=== PATIENT | female | born 1955 | race Caucasian/White ===

== ENCOUNTER 2017-06-08 11:33 | Inpatient (IN) | payer BC ==
[~2017-06-08] VITALS: Ht 152.4 cm; Wt 76.2 kg
[~2017-06-08 11:33] MED LIST: DIOVAN HCT 1601 EAC1 PO; FOLIC ACID1 MG PO; HUMALOG100 UNIT/1 SC; HUMALOG100 UNIT/1 SQ; LANTUS100 UNITS/ SC; LEVAQUIN500 MG PO; METFORMIN HCL500 MG PO; METHOTREXATE2.5 MG SC; PRAVASTATIN SOD40 MG PO; VITAMIN D35000 UNIT PO; XELJANZ PO
--- OUTSIDE RECORDS SUMMARY | 2017-06-08 11:36 | XMS REPORT | Summary of Care ---
Author Author Joselyn Wesley Organization Unknown Address [facility] Phone Unavailable Care Team Providers Care Landscape Horticulture Instructor Name Role Phone CB Burgos, TOBY Unavailable Unavailable MOISE John, MAUREEN Unavailable Unavailable Joselyn Wesley Unavailable Unavailable ALYSSIA MARINO [place], DAVID Melgar Unavailable Unavailable ALYSSIA John, DAVID Unavailable Unavailable [facility], CHANDU Gusman Unavailable Unavailable Unavailable Unavailable Functional Status Name Dates Details Functional status health issues are not documented Status: Name Dates Details Cognitive status health issues are not documented Status: Problems Name Dates Details Right otitis externa (380.10, H60.91) Status: Active Allergic rhinitis (477.9, J30.9) Status: Active Acute internal derangement of right knee (717.9, M23.91) Status: Active Right knee pain (719.46, M25.561) Status: Active Acute UTI (599.0, N39.0) Status: Active Acute bronchitis (466.0, J20.9) Status: Active Acute upper respiratory infection (465.9, J06.9) Status: Active Hematuria (599.70, R31.9) Status: Active Encounter for biometric screening (V72.85, Z01.89) Status: Active Diabetes mellitus without complication (250.00, E11.9) Status: Active Noncompliance with treatment (V15.81, Z91.19) Status: Active Anemia (285.9, D64.9) Status: Active Screen for colon cancer (V76.51, Z12.11) Status: Active Nausea without vomiting (787.02, R11.0) Status: Active Chronic GERD (530.81, K21.9) Status: Active Asymptomatic gallstones (574.20, K80.20) Status: Active Acute ethmoidal sinusitis, recurrence not specified (461.2, J01.20) Status: Active Dizziness (780.4, R42) Status: Active Adrenal tumor (239.7, D49.7) Status: Active AB (asthmatic bronchitis), mild persistent, uncomplicated (493.90, J45.30) Status: Active Vertigo (780.4, R42) Status: Active GERD (gastroesophageal reflux disease) (530.81, K21.9) Status: Active Limb pain (729.5, M79.609) Status: Active Diabetes mellitus (250.00, E11.9) Status: Active Essential (primary) hypertension (401.9, I10) Status: Active Hyperlipidemia (272.4, E78.5) Status: Active Hypothyroidism (244.9, E03.9) Status: Active Vitamin D deficiency (268.9, E55.9) Status: Active Flu vaccine need (V04.81, Z23) Status: Active Lumbar disc disease with radiculopathy (722.10, M51.16) Status: Active Neuropathy, peripheral (356.9, G62.9) Status: Active Urinary tract infection (599.0, N39.0) Status: Active Abnormal urine odor (791.9, R82.90) Status: Active Dysuria (788.1, R30.0) Status: Active Rheumatoid arthritis (714.0, M06.9) Status: Active Breast screening (V76.10, Z12.31) Status: Active Lumbar canal stenosis (724.02, M48.061) Status: Active Lumbar degenerative disc disease (722.52, M51.36) Status: Active Symptoms of upper respiratory infection (URI) (786.09, R09.89) Status: Active Medications Name Dates Details Mame Freeman 33G Check BG 4x a day Quantity: 400 MOISE MAUREEN John * Start : 11-Aug-2012 Active Lantus SoloStar 100 UNIT/ML Subcutaneous Solution Pen-injector INJECT 40 TO 50 UNITS UNDER THE SKIN AT NIGHT. MAY SELF TITRATE UP TO 65 UNITS DAILY. * Quantity: 3 Refills: 0 MAUREEN PHIPPS M.D. * Start : 21-Nov-2016 Active 5 x 3 ML Pen BD Pen Needle Short U/F 31G X 8 MM 5 a day * Quantity: 500 Refills: 4 MOISE M.MAUREEN Santiago * Start : 11-Aug-2012 Active MetFORMIN HCl - 1000 MG Oral Tablet TAKE 1 TABLET TWICE A DAY WITH FOOD * Quantity: 180 Refills: 0 MAUREEN PHIPPS M.D. * Start : 03-Feb-2017 Active Levothyroxine Sodium 112 MCG Oral Tablet TAKE 1 TABLET DAILY DIRECTED. * Quantity: 90 Refills: 1 MAUREEN PHIPPS M.D. * Start : 11-Aug-2012 Active Folic Acid 1 MG Oral Tablet TAKE 1 TABLET DAILY * Refills: 0 MAUREEN PHIPPS M.D. * Start : 11-Aug-2012 Active Pravastatin Sodium 40 MG Oral Tablet take 1 tablet at night * Quantity: 90 Refills: 0 MAUREEN PHIPPS M.D. * Start : 11-May-2017 Active Valsartan-Hydrochlorothiazide 160-25 MG Oral Tablet TAKE 1 TABLET DAILY * Quantity: 90 Refills: 0 MAUREEN PHIPPS M.D. * Start : 11-May-2017 Active GlucaGen HypoKit 1 MG Injection Solution Reconstituted USE DIRECTED in case of severe hypoglycemia * Refills: 6 MAUREEN PHIPPS M.D. * Start : 22-Oct-2012 Active Tylenol TABS TAKE 1 TO 2 TABLETS EVERY 6 HOURS NEEDED. * Refills: 0 Active HumaLOG KwikPen 100 UNIT/ML Subcutaneous Solution Pen-injector 14-18 breakfast; 14-18 lunch; 14-18 supper; 8 snacks; CF~20; ICR 1:3 up to 180 units a day * Quantity: 25 Refills: 1 MAUREEN PHIPPS M.D. * Start : 11-May-2013 Active 3 ML Pen Vitamin D3 5000 UNIT Oral Capsule take 5000 IU daily Start 04-18-16 * Quantity: 100 Refills: 6 MAUREEN PHIPPS M.D. * Start : 17-Feb-2014 Active OneTouch Verio In Vitro Strip Check BG 4x a day * Quantity: 4 Refills: 3 MAUREEN PHIPPS M.D. * Start : 17-Apr-2016 Active 100 Strip Box Trulicity 1.5 MG/0.5ML Subcutaneous Solution Pen-injector Inject contents of 1 pen weekly * Quantity: 1 Refills: 0 MAUREEN PHIPPS M.D. * Start : 11-May-2017 Active 4 x 0.5 ML Pen Gabapentin 100 MG Oral Capsule TAKE 1 CAPSULE Every twelve hours * Quantity: 60 Refills: 1 TOBY VIVAR N.P. * Start : 19-Mar-2017 Active B-12 2500 MCG Sublingual Tablet Sublingual PLACE 1 TABLET DAILY * Refills: 0 Active Cefdinir 300 MG Oral Capsule TAKE 1 CAPSULE EVERY 12 HOURS DAILY. * Quantity: 14 Refills: 0 CB Jiménez.P., TOBY * Start : 28-May-2017 Active Promethazine-DM 6.25-15 MG/5ML Oral Syrup TAKE ONE (1) TEASPOONFUL(S) BY MOUTH EVERY SIX HOURS NEEDED FOR COUGH. * Quantity: 120 Refills: 0 CB N.P.TOBY * Start : 28-May-2017 Active Allergies and Adverse Reactions Name Dates Details Seconal CAPS (Allergy) Status: Active Past Medical History Name Dates Details History of Coronary Artery Disease (V12.59) Status: Resolved History of renal calculi (V13.01, Z87.442) Status: Resolved Procedures Procedure Dates Details MA Digital Mammo Screening Sukumar [id number] Date: 15-May-2017 History of Knee Surgery Completed History of Hysterectomy Completed History of Biopsy Breast Open Completed History of Renal Lithotripsy Completed Immunization Name Dates Details Fluzone Quadrivalent 0.5 ML Intramuscular Suspension Lot #: [id number] on: 03-Mar-2017 Family History Name Dates Details Family history of Diabetes Mellitus (V18.0) Comments: Family History Status: Active Name Dates Details No pertinent family history Status: Active Social History Name Dates Details - Status: Name Dates Details Never smoker Vital Signs Date Test Result Details 44-Qxm-[id number]:21 BP Systolic 122 mm[Hg] Status: Comments: Location: LUE; Position: Sitting BP Diastolic 69 mm[Hg] Status: Comments: Location: LUE; Position: Sitting Height 63 in Status: Weight 175.1875 lb Status: Body Mass Index Calculated 31.03 kg/m2 Status: Body Surface Area Calculated 1.83 m2 Status: Temperature 97.8 f Status: Comments: Method: Temporal Heart Rate 78 /min Status: Comments: Location: R Radial; Quality: Normal Respiration Rate 18 /min Status: 59-Oxg-06966:59 BP Systolic 133 mm[Hg] Status: Comments: Location: LUE; Position: Sitting BP Diastolic 80 mm[Hg] Status: Comments: Location: LUE; Position: Sitting Height 63 in Status: Weight 179.375 lb Status: Body Mass Index Calculated 31.77 kg/m2 Status: Body Surface Area Calculated 1.85 m2 Status: Temperature 97.7 f Status: Comments: Method: Temporal Heart Rate 87 /min Status: Comments: Location: L Brachial Artery; Respiration Rate 16 /min Status: Results Date Description Value Details [id number] MRI Spine lumbar wo contrast 99514 Spine lumbar wo contrast MRI SEE NOTES Comments: Spine lumbar wo contrast MRI , 05/15/2017 5:24 PM 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 L4-L5 grade 1 anteriorlisthesis of 3 mm, without evidence of pars defect, though slice selection ismildly limiting. The vertebrae are otherwise normal in shape, signal intensityand alignment. The intervertebral disks are diffusely desiccated.The paravertebral musculature demonstrates moderate fatty atrophy in keepingwith deconditioning. The conus medullaris terminates normally at the I99-T9evbhs. There is no intradural mass lesion.T12-L1: There is preservation of disc height , without evidence ofsignificant disc bulge, disc herniation, neural foraminal stenosis, or spinalstenosis.L1-L2: Preserved disc height. Mild disc bulge exaggerated by theretrolisthesis with minimal facet hypertrophy and ligamentum flavum thickening.This results in mild bilateral neural foraminal narrowing.L2-L3: Preserved disc height. Mild to moderate disc bulge asymmetric to theleft measuring up to 4 mm, with mild facet hypertrophy and ligamentum flavumthickening. This results in mild left lateral recess narrowing withdisplacement descending left L3 nerve root. Mild bilateral neural foraminalnarrowing.L3-L4: Disc height preserved. Moderate disc bulge at 5 mm with moderate facethypertrophy and ligamentum flavum thickening. This results in hhyl-ag-hquwwgdmzvcvi stenosis with crowding of the nerve roots. Moderate right and mild leftneural foraminal narrowing with deformity of the right L3 nerve root.L4-L5: Disc height preserved. Mild to moderate disc bulge with moderate facethypertrophy and ligamentum flavum thickening. This results in mild -to-moderatecanal and lateral recess narrowing with crowding of the nerve roots.Mild/moderate left greater than right neural foraminal narrowing with minimaldeformity of the L4 nerve roots.L5-S1: There is preservation of disc height , with mild facet hypertrophy,and extraforaminal disc osteophyte complex contacting the right L5 nerve root.No evidence of significant disc bulge , disc herniation, neural foraminalstenosis, or spinal stenosis.IMPRESSION:1. Moderate multilevel degenerative changes as detailed above, including: Multilevel listhesis. Ttfw-wi-ecteyoou canal stenosis at L3-L4 and L4-L5 withcrowding of the nerve root. Degenerative stenoses resulting in deformity of theright L3 and left greater than right L4 foraminal nerve roots, as well asslight displacement of descending left L3 nerve root. If there is clinical concern for instability, consider flexion-extensionviews.--Read by: Asad Cabrales MDDictated Date/time: 05/16/17 16:32Electronically Signed by: Asad Cabrales MD 05/16/1815:39FINAL REPORT Plan of Care Name Dates Details Planned Observations Planned Goals not documented Planned Encounters Appointment; MARCIAL HARVEY M.D. On: 15-Jun-2017 13:00 Appointment; MAUREEN PHIPPS M.D. On: 02-Jul-2017 9:00 Instructions Name Dates Details Instructions not documented Encounters Appointment; TOBY VIVAR NP Encounter Diagnosis: Problem not documented On: 12-Jun-2015 11:15 Appointment; MAUREEN PHIPPS M.D. Encounter Diagnosis: Problem not documented On: 02-Jul-2015 15:45 Appointment; LEO HERRERA M.D. Encounter Diagnosis: Problem not documented On: 29-Aug-2015 13:15 Appointment; ANGELIKA CALDERA M.D. Encounter Diagnosis: Problem not documented On: 03-Sep-2015 13:00 Appointment; LEO HERRERA M.D. Encounter Diagnosis: Problem not documented On: 07-Sep-2015 9:30 Appointment; CHANDU SWEENEY NP Encounter Diagnosis: Problem not documented On: 19-Nov-2015 14:45 Appointment; CHANDU SWEENEY NP Encounter Diagnosis: Problem not documented On: 08-Dec-2015 10:00 Appointment; MAUREEN PHIPPS M.D. Encounter Diagnosis: Problem not documented On: 22-Jan-2016 11:00 Appointment; CHANDU SWEENEY NP Encounter Diagnosis: Problem not documented On: 04-Apr-2016 10:00 Appointment; MAUREEN PHIPPS M.D. Encounter Diagnosis: Problem not documented On: 17-Apr-2016 14:15 Appointment; BABATUNDE ADORNO M.D. Encounter Diagnosis: Problem not documented On: 22-Apr-2016 16:00 Appointment; IDANIA HANSEN RD Encounter Diagnosis: Problem not documented On: 29-Apr-2016 13:00 Appointment; CECY NIETO NP Encounter Diagnosis: Problem not documented On: 22-May-2016 9:30 Appointment; MAUREEN PHIPPS M.D. Encounter Diagnosis: Problem not documented On: 09-Jun-2016 12:00 Appointment; TOBY VIVAR NP Encounter Diagnosis: Problem not documented On: 02-Jul-2016 9:15 Appointment; MAUREEN PHIPPS M.D. Encounter Diagnosis: Problem not documented On: 15-Aug-2016 11:00 Appointment; MAUREEN PHIPPS M.D. Encounter Diagnosis: Problem not documented On: 07-Nov-2016 11:00 Appointment; TOBY VIVAR NP Encounter Diagnosis: Problem not documented On: 30-Jan-2017 10:15 Appointment; MAUREEN PHIPPS M.D. Encounter Diagnosis: Problem not documented On: 03-Mar-2017 9:30 Appointment; TOBY VIVAR NP Encounter Diagnosis: Problem not documented On: 19-Mar-2017 11:00 Appointment; CHANDU SWEENEY NP Encounter Diagnosis: Problem not documented On: 15-May-2017 10:00 Appointment; TOBY VIVAR NP Encounter Diagnosis: Problem not documented On: 28-May-2017 8:00
[2017-06-08] MEDS ORDERED: MORPHINE SULFATE 4 MG/ML SYR IV STA (12:02)
[2017-06-08] MEDS ORDERED: SODIUM CHLORIDE 0.9% 1000ML 1,000 ML IV STA (12:02)
[2017-06-08] MEDS ORDERED: ONDANSETRON HCL INJ 2 MG/ML VIAL IV STA ×2 (12:02→17:37)
--- NOTE | 2017-06-08 13:15 | Diagnostic Imaging Report ---
PROCEDURE: CT ABDOMEN AND PELVIS WITHOUT CONTRAST TECHNIQUE: The abdomen and pelvis were scanned utilizing a multidetector helical scanner from the diaphragm to the lesser trochanter without intravenous contrast. Coronal and sagittal multiplanar reformations were obtained. COMPARISON: 12/08/2015 INDICATIONS: BACK PAIN CALCULUS OF KIDNEY FINDINGS: ABSENCE OF INTRAVENOUS CONTRAST DECREASES SENSITIVITY FOR DETECTION OF FOCAL LESIONS AND VASCULAR PATHOLOGY. LOWER THORAX: Mild subsegmental atelectasis and scarlike opacities in the lung bases. A 4 mm nodule in the right middle lobe (series 3, image 5) is indeterminate. Cluster of tiny centrilobular nodules in the left lung base (series 3, image 36) suggests an infectious etiology. HEPATOBILIARY: No focal hepatic lesions. No biliary ductal dilatation. There are small stones in the gallbladder, unchanged. No pericholecystic fluid or wall thickening. SPLEEN: No splenomegaly. PANCREAS: No focal masses or ductal dilatation. ADRENALS: Stable 1.4 cm left adrenal nodule (series 3, image 61) which is consistent with a benign adenoma. No right adrenal nodules. KIDNEYS/URETERS: No hydronephrosis or solid mass lesions. There are at least 2 nonobstructing stones in the lower pole of the right kidney, measuring up to about 3 mm (series 41, image 55). There is a 3 mm nonobstructing stone in the lower pole of the left kidney as well (image 58). No ureteral stones. PELVIC ORGANS/BLADDER: The uterus is absent. A small focus of air in the bladder is presumably related to catheterization. PERITONEUM / RETROPERITONEUM: No free air or fluid. There is a stable coarse calcification in the mesentery which is probably related to prior infection or surgery. LYMPH NODES: There is a 2.0 cm left retroperitoneal lymph node, just inferior to the left renal vein (series 3, image 72). This previously measured 1.9 cm. No other lymphadenopathy. VESSELS: Unremarkable. GI TRACT: No distention or wall thickening. The appendix is normal. BONES AND SOFT TISSUES: There is a fat-containing right inguinal hernia, unchanged. Multilevel degenerative changes of the thoracic and lumbar spine with moderate facet arthrosis of the lower lumbar spine. IMPRESSION: 1. Small, nonobstructing stones in both kidneys, measuring up to 3 mm. No ureteral stones. No hydronephrosis. 2. 2.0 cm left retroperitoneal lymph node which is overall stable since 12/08/2015. This is indeterminate. 3. Incidental note of a 4 mm nodule in the middle lobe of the right lung. Consider followup chest CT in one year to ensure stability. Dictated by: Adal Blackmon M.D. on 06/08/2017 at 13:24 Electronically approved by: Adal Blackmon M.D. on 06/08/2017 at 13:24
[2017-06-08 13:25] LABS: BILIRUBIN,URINE NEGATIVE (NEGATIVE); KETONES,URINE NEGATIVE (NEGATIVE); LEUKOCYTE ESTERASE ,URINE NEGATIVE (NEGATIVE); NITRITE,URINE NEGATIVE (NEGATIVE); PROTEIN,URINE DIPSTICK NEGATIVE (NEGATIVE); URINE UROBILINOGEN 0.2 mg/dL (0.2 - 1)
[2017-06-08 13:28] LABS: CLARITY,URINE CLEAR (CLEAR); COLOR,URINE YELLOW (YELLOW)
[2017-06-08 13:45] LABS: AMORPHOUS SEDIMENT,URINE FEW (FEW); BACTERIA,URINE RARE /HPF; EPITHELIAL CELLS,URINE RARE /LPF; TRANSITIONAL EPI CELLS,URINE RARE; WBC,URINE (MAN) 0-5 /HPF (0-5)
[2017-06-08] MEDS ORDERED: KETOROLAC TROMETHAMINE 30 MG/ML VIAL IV STA (14:07)
[2017-06-08] MEDS ORDERED: SODIUM CHLORIDE 0.9% 1000ML 1,000 ML IV ONE (15:15)
[2017-06-08] MEDS ORDERED: MORPHINE SULFATE 2 MG/ML SYR IV ONE (15:25)
[2017-06-08] MEDS ORDERED: ONDANSETRON HCL INJ 2 MG/ML VIAL IV ONE (15:25)
[2017-06-08 15:33] LABS: BASOPHILS # (AUTO) 0.1 (0.0-0.1); BASOPHILS % 0.8 % (0.0-1.0); EOSINOPHILS # (AUTO) 0.3 (0.0-0.4); EOSINOPHILS % 2.6 % (0.0-6.0); HEMATOCRIT 39.4 % (34.2-44.1); HEMOGLOBIN 12.5 g/dL (12.0-16.0); LYMPHOCYTES # (AUTO) 2.8 (1.0-3.2); LYMPHOCYTES % 28.4 % (18.0-39.1); MEAN CORPUSCULAR HEMOGLOBIN 28.7 pg (28-32); MEAN CORPUSCULAR HGB CONC 31.7 g/dL (31-35); MEAN CORPUSCULAR VOLUME 90.4 fL (81-99); MONOCYTES # (AUTO) 0.8 (0.2-0.8); MONOCYTES % 7.8 % (4.4-11.3); NEUTROPHILS # (AUTO) 5.9 (2.1-6.9); NEUTROPHILS % 60.3 % (38.7-80.0); PLATELET COUNT 330 x10e3/uL (140-360); RED BLOOD COUNT 4.36 x10e6/uL (3.6-5.1); RED CELL DISTRIBUTION WIDTH 14.2 % (11.7-14.4)
[2017-06-08 15:46] LABS: ALANINE AMINOTRANSFERASE 10 IU/L (0-55); ALBUMIN 4.1 g/dL (3.5-5.0); ALBUMIN/GLOBULIN RATIO 1.1 (0.8-2.0); ALKALINE PHOSPHATASE 75 IU/L (40-150); ANION GAP 14.3 mmol/L (8-16); BLOOD UREA NITROGEN 11 mg/dL (7-26); BUN/CREATININE RATIO 15 (6-25); CALCIUM 9.5 mg/dL (8.4-10.2); CARBON DIOXIDE 24 mmol/L (22-29); CHLORIDE 103 mmol/L (98-107); CREATININE, SERUM 0.71 mg/dL (0.57-1.11); EST GLOMERULAR FILTRATION RATE > 60 ML/MIN (60-); GLUCOSE 138 mg/dL (74-118); POTASSIUM 4.3 mmol/L (3.5-5.1); SODIUM 137 mmol/L (136-145)
[2017-06-08 15:47] LABS: AMYLASE 55 U/L (25-125); LIPASE 26 U/L (8-78)
--- NOTE | 2017-06-08 16:23 | Diagnostic Imaging Report ---
PROCEDURE:US GALLBLADDER COMPARISON:None. INDICATIONS:RUQ AND BACK PAIN, VOMITTING TECHNIQUE: Squires-scale and color doppler transverse and longitudinal images of the right upper quadrant of the abdomen were obtained. FINDINGS: Liver: 16.6 cm in right mid-clavicular line. Mildly increased echogenicity. No masses. Main portal vein: 1.0 cm, normal, with normal hepatopedal flow Gallbladder: Small stones in the gallbladder including a stone near the gallbladder neck. No gallbladder wall thickening or pericholecystic fluid Common Bile Duct: 0.4 cm Sonographic Colby's sign: Questionable positive Right kidney: 10.1 cm. Normal echogenicity. No solid masses or hydronephrosis. Pancreas: The visualized portions are unremarkable. Inferior vena cava: Patent Aorta: Within normal limits Ascites: None in the right upper quadrant of the abdomen. CONCLUSION: 1. Cholelithiasis. No pericholecystic fluid or gallbladder wall thickening. 2. The Colby's sign was reported as positive, but the patient also reported pain with scanning of her right kidney, which calls into question the specificity of this sign. 3. Hepatic steatosis. Dictated by: Adal Blackmon M.D. on 06/08/2017 at 16:33 Electronically approved by: Adal Blackmon M.D. on 06/08/2017 at 16:33
[2017-06-08] MEDS: MORPHINE SULFATE 2 MG/ML SYR IV ONE ×2 (17:41→17:46)
[2017-06-08] MEDS ORDERED: PIPER-TAZ 3.375 GM/50 ML BAG IV SCH (18:15)
[2017-06-08] MEDS ORDERED: ONDANSETRON HCL INJ 2 MG/ML VIAL IV PRN (18:15)
[2017-06-08] MEDS: D5.45%NS/KCL 20MEQ 1,000 ML IV SCH (18:51)
[2017-06-08] MEDS ORDERED: TRULICITY SC (18:58)
[2017-06-08] MEDS ORDERED: DEXTROSE 50% SYRINGE 50 ML IV PRN (19:15)
--- OUTSIDE RECORDS SUMMARY | 2017-06-08 20:19 | XMS REPORT ---
Author Author [facility] Address Unknown Phone Unavailable Care Team Providers Care Spinner Concrete Pipe Name Role Phone MIGUEL HAN Unavailable Unavailable Problems This patient has no known problems. Allergies, Adverse Reactions, Alerts This patient has no known allergies or adverse reactions. Medications This patient has no known medications. Results Test Description Test Time Test Comments Text Results Atomic Results Result Comments CT ABDOMEN/PELVIS WO [place] [address] Patient Name: RHONDA BENNETT MR #: [id number] : 1955 Age/Sex: 61/F Req #: [id number] Adm Physician: Ordered by: GEENA PEREZ CUSTOM FRAMING SPECIALIST Report #: [id number] Location: ER Room/Bed: Procedure: [id number] CT/CT ABDOMEN/PELVIS WO Exam Date: 06/08/17 Exam Time: 1215 REPORT STATUS: Signed PROCEDURE: CT ABDOMEN AND PELVIS WITHOUT CONTRAST TECHNIQUE: The abdomen and pelvis were scanned utilizing a multidetector helical scanner from the diaphragm to the lesser trochanter without intravenous contrast. Coronal and sagittal multiplanar reformations were obtained. COMPARISON: 12/08/2015 INDICATIONS: BACK PAIN CALCULUS OF KIDNEY FINDINGS: ABSENCE OF INTRAVENOUS CONTRAST DECREASES SENSITIVITY FOR DETECTION OF FOCAL LESIONS AND VASCULAR PATHOLOGY. LOWER THORAX: Mild subsegmental atelectasis and scarlike opacities in the lung bases. A 4 mm nodule in the right middle lobe (series 3, image 5) is indeterminate. Cluster of tiny centrilobular nodules in the left lung base (series 3, image 36) suggests an infectious etiology. HEPATOBILIARY: No focal hepatic lesions. No biliary ductal dilatation. There are small stones in the gallbladder, unchanged. No pericholecystic fluid or wall thickening. SPLEEN: No splenomegaly. PANCREAS: No focal masses or ductal dilatation. ADRENALS: Stable 1.4 cm left adrenal nodule (series 3, image 61) which is consistent with a benign adenoma. No right adrenal nodules. KIDNEYS/URETERS: No hydronephrosis or solid mass lesions. There are at least 2 nonobstructing stones in the lower pole of the right kidney, measuring up to about 3 mm ( series 41, image 55). There is a 3 mm nonobstructing stone in the lower pole of the left kidney as well (image 58). No ureteral stones. PELVIC ORGANS/BLADDER: The uterus is absent. A small focus of air in the bladder is presumably related to catheterization. PERITONEUM / RETROPERITONEUM: No free air or fluid. There is a stable coarse calcification in the mesentery which is probably related to prior infection or surgery. LYMPH NODES: There is a 2.0 cm left retroperitoneal lymph node , just inferior to the left renal vein (series 3, image 72). This previously measured 1.9 cm. No other lymphadenopathy. VESSELS: Unremarkable. GI TRACT: No distention or wall thickening. The appendix is normal. BONES AND SOFT TISSUES: There is a fat-containing right inguinal hernia, unchanged. Multilevel degenerative changes of the thoracic and lumbar spine with moderate facet arthrosis of the lower lumbar spine. IMPRESSION: 1. Small, nonobstructing stones in both kidneys, measuring up to 3 mm. No ureteral stones. No hydronephrosis. 2. 2.0 cm left retroperitoneal lymph node which is overall stable since 12/08/2015. This is indeterminate. 3. Incidental note of a 4 mm nodule in the middle lobe of the right lung. Consider followup chest CT in one year to ensure stability. Dictated by: Effie Blackmon M.D. on 06/08/2017 at 13:24 Electronically approved by: Effie Blackmon M.D. on 06/08/2017 at 13:24 Dictated By: EFFIE BLACKMON MD 1324 Transcribed By: ZANDER on 06/08/17 1324 COPY TO: GEENA PEREZ NP US GALLBLADDER [place] [address] Patient Name: RHONDA BENNETT MR #: [id number] : 1955 Age/Sex: 61/F Req #: [id number] Adm Physician: Ordered by: MIGUEL HAN MD Report #: [id number] Location: ER Room/Bed: Procedure: [id number] US/US GALLBLADDER Exam Date: 06/08/17 Exam Time: 1543 REPORT STATUS: Signed PROCEDURE: US GALLBLADDER COMPARISON: None. INDICATIONS: RUQ AND BACK PAIN, VOMITTING TECHNIQUE: Squires-scale and color doppler transverse and longitudinal images of the right upper quadrant of the abdomen were obtained. FINDINGS: Liver: 16.6 cm in right mid-clavicular line. Mildly increased echogenicity. No masses. Main portal vein: 1.0 cm, normal, with normal hepatopedal flow Gallbladder: Small stones in the gallbladder including a stone near the gallbladder neck. No gallbladder wall thickening or pericholecystic fluid Common Bile Duct: 0.4 cm Sonographic Colby's sign: Questionable positive Right kidney: 10.1 cm. Normal echogenicity. No solid masses or hydronephrosis. Pancreas: The visualized portions are unremarkable. Inferior vena cava: Patent Aorta: Within normal limits Ascites: None in the right upper quadrant of the abdomen. CONCLUSION: 1. Cholelithiasis. No pericholecystic fluid or gallbladder wall thickening. 2. The Colby's sign was reported as positive, but the patient also reported pain with scanning of her right kidney, which calls into question the specificity of this sign. 3. Hepatic steatosis. Dictated by: Effie Blackmon M.D. on 06/08/2017 at 16:33 Electronically approved by: Effie Blackmon M.D. on 06/08/2017 at 16:33 Dictated By: EFFIE BLCAKMON MD 1633 Transcribed By: ZANDER on 06/08/17 1633 COPY TO: MIGUEL HAN MD
--- OUTSIDE RECORDS SUMMARY | 2017-06-08 20:19 | XMS REPORT | Summary of Care ---
Author Author Edyta Tripathi Organization Unknown Address Unknown Phone Unavailable Care Team Providers Care Manager Flight Name Role Phone [facility] Unavailable Unavailable MOISE John, MAUREEN Unavailable Unavailable Edyta Tripathi Unavailable Unavailable ALYSSIA MARINO [place], DAVID Melgar Unavailable Unavailable ALYSSIA John, DAVID Unavailable Unavailable ZAHRA STERN [place], CHANDU Gusman Unavailable Unavailable Unavailable Unavailable Functional [...] day * Quantity: 500 Refills: 4 MOISE MAUREEN John * Start : 11-Aug-2012 Active MetFORMIN HCl [...] DAILY. * Quantity: 14 Refills: 0 CB Jiménez.TOBY Stark * Start : 28-May-2017 Active Promethazine-DM 6.25-15 MG/5ML Oral Syrup TAKE ONE (1) TEASPOONFUL(S) BY MOUTH EVERY SIX HOURS NEEDED FOR COUGH. * Quantity: 120 Refills: 0 CB Jiménez.TOBY Stark * Start : 28-May-2017 Active Allergies and [...] Quadrivalent 0.5 ML Intramuscular Suspension Lot #: [id number] on: 03-Mar-2017 Family History Name Dates Details Family history of Diabetes Mellitus (V18.0) Comments: Family History Status: Active Name Dates Details No pertinent family history Status: Active Social History Name Dates Details - Status: Name Dates Details Never smoker Vital Signs Date Test Result Details 05-Pnj-26122:21 BP Systolic 122 mm[Hg] Status: Comments: Location: [...] Quality: Normal Respiration Rate 18 /min Status: 30-Dil-39191:59 BP Systolic 133 mm[Hg] Status: Comments: Location: [...] /min Status: Results Date Description Value Details 18-Nij-203526:00 MRI Spine lumbar wo contrast [id number] Spine lumbar wo contrast MRI SEE NOTES Comments: Spine lumbar wo contrast MRI , 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 L4-L5 grade 1 anteriorlisthesis of 3 mm, without evidence of pars defect, though slice selection ismildly limiting. The vertebrae are otherwise normal in shape, signal intensityand alignment. The intervertebral disks are diffusely desiccated.The paravertebral musculature demonstrates moderate fatty atrophy in keepingwith deconditioning. The conus medullaris terminates normally at the M60-W5vswsc. There is no intradural mass lesion.T12-L1: There [...] and ligamentum flavum thickening. This results in wcta-mv-sviyvcynvstre stenosis with crowding of the nerve roots. [...] changes as detailed above, including: Multilevel listhesis. Yfrb-qu-iwawduyw canal stenosis at L3-L4 and L4-L5 withcrowding [...] Appointment; MAUREEN PHIPPS M.D. On: 02-Jul-2017 9:00 Interventions Provided Discussion/Summary* Guideline Used: * Other: none used * Recommended Disposition: Please call back with any questions or concerns * Action Taken: * Patient informed/educated about nurse line * Intended Caller Action: * Other: to have Dr. Bridges paged * Additional Information: * Caller educated on nurse triage line use & encouraged to call back for symptom support or additional home care advice and/or go to the nearest Emergency Room or call 911 if patient condition has worsened to a medical emergency. Instructions Name Dates Details Instructions not documented [...]
--- NOTE | 2017-06-08 21:34 | Consultation ---
DATE OF CONSULTATION: June 08, 2017 REASON FOR CONSULTATION: Gallstones and abdominal pain. The patient is a pleasant 61-year-old, diabetic female admitted through the emergency room complaining of abdominal pain in the right upper quadrant. The pain actually started in the right flank and then moved to the right upper quadrant. The patient has a history of UTI and renal stones in the past. She has had a hysterectomy in the past also. The patient upon admitted to the emergency room underwent a CT scan of the abdomen that revealed no hydronephrosis, no obstruction of the kidneys, no ureteral stones. There were two small 3 mm renal stones. Her admission urinalysis was normal. Admission ultrasound revealed gallstone, no ductal dilatation. Admission liver chemistries were normal. Admission white count was normal. Blood sugar was 188. Admission urinalysis was normal except for 3+ glucose. There was no evidence of blood. The leukocyte esterase was negative. PAST MEDICAL HISTORY: Significant for what has been stated above. She is an insulin dependent diabetic on several hypoglycemic agents. She also had hysterectomy as previously stated. PHYSICAL EXAMINATION GENERAL: A 61-year-old female in no acute distress. ABDOMEN: Soft. There is mild right upper quadrant tenderness. No flank tenderness. ASSESSMENT: Gallstones, biliary colic, possibly cholecystitis, even though there is no evidence of cholecystitis by ultrasound or CT scan, only gallstones by ultrasound. There is no evidence of urological acute process at this time with a negative urine and non-obstructed kidney or ureters by CT scan. PLAN: The plan is to keep n.p.o. and we will proceed with laparoscopic cholecystectomy, possible open cholecystectomy tomorrow if it is agreeable with Dr. Bridges. I have discussed the surgical plans with the patient and she agrees with my plan. Job#: [id number]
[2017-06-08] MEDS: INSULIN REGULAR, HUMAN 100 UNIT/1 ML 3ML VIAL SQ SCH (22:57)
[2017-06-09] VITALS (8 sets, daily range): BP systolic 120–149; BP diastolic 60–75
[2017-06-09] MEDS: PIPER-TAZ 3.375 GM 50 ML IV SCH ×5 (00:55→23:45)
[2017-06-09] MEDS: D5.45%NS/KCL 20MEQ 1,000 ML IV SCH ×3 (02:04→22:40)
[2017-06-09 06:40] LABS: BASOPHILS # (AUTO) 0.1 (0.0-0.1); BASOPHILS % 0.5 % (0.0-1.0); EOSINOPHILS # (AUTO) 0.1 (0.0-0.4); EOSINOPHILS % 1.3 % (0.0-6.0); HEMATOCRIT 34.9 % (34.2-44.1); HEMOGLOBIN 11.1 g/dL (12.0-16.0); LYMPHOCYTES # (AUTO) 2.2 (1.0-3.2); LYMPHOCYTES % 20.8 % (18.0-39.1); MEAN CORPUSCULAR HEMOGLOBIN 28.6 pg (28-32); MEAN CORPUSCULAR HGB CONC 31.8 g/dL (31-35); MEAN CORPUSCULAR VOLUME 89.9 fL (81-99); MONOCYTES # (AUTO) 0.8 (0.2-0.8); MONOCYTES % 7.3 % (4.4-11.3); NEUTROPHILS # (AUTO) 7.2 (2.1-6.9); NEUTROPHILS % 69.8 % (38.7-80.0); PLATELET COUNT 294 x10e3/uL (140-360); RED BLOOD COUNT 3.88 x10e6/uL (3.6-5.1); RED CELL DISTRIBUTION WIDTH 14.2 % (11.7-14.4)
[2017-06-09 07:03] LABS: ALANINE AMINOTRANSFERASE 8 IU/L (0-55); ALBUMIN 3.2 g/dL (3.5-5.0); ALBUMIN/GLOBULIN RATIO 0.9 (0.8-2.0); ALKALINE PHOSPHATASE 66 IU/L (40-150); AMYLASE 44 U/L (25-125); BLOOD UREA NITROGEN 8 mg/dL (7-26); BUN/CREATININE RATIO 11 (6-25); CALCIUM 8.8 mg/dL (8.4-10.2); CARBON DIOXIDE 25 mmol/L (22-29); CHLORIDE 105 mmol/L (98-107); CREATININE, SERUM 0.73 mg/dL (0.57-1.11); EST GLOMERULAR FILTRATION RATE > 60 ML/MIN (60-); GLUCOSE 204 mg/dL (74-118); LIPASE 23 U/L (8-78); SODIUM 138 mmol/L (136-145)
[2017-06-09] MEDS: INSULIN REGULAR, HUMAN 100 UNIT/1 ML 3ML VIAL SQ SCH ×4 (07:30→21:28)
[2017-06-09] MEDS ORDERED: BUPIVACAINE HCL 0.5% INJ 30 ML VIAL INJ ONE (08:37)
[2017-06-09] MEDS ORDERED: ONDANSETRON HCL INJ 2 MG/ML VIAL ONE ×2 (10:29→18:06)
[2017-06-09] MEDS ORDERED: ONDANSETRON HCL INJ 2 MG/ML VIAL IV PRN (10:30)
[2017-06-09] MEDS ORDERED: HYDROCODONE/APAP 7.5MG-325MG 1 EA TAB PO PRN (10:30)
--- NOTE | 2017-06-09 11:08 | Operative Report ---
DATE OF PROCEDURE: June 09, 2017 PREOPERATIVE DIAGNOSES 1. Cholelithiasis and cholecystitis. 2. Abdominal pain. 3. Diabetes. POSTOPERATIVE DIAGNOSES 1. Cholelithiasis and cholecystitis. 2. Abdominal pain. 3. Diabetes. PROCEDURE PERFORMED: Laparoscopic cholecystectomy. ANESTHESIA: General endotracheal. ESTIMATED BLOOD LOSS: 25 mL. DRAINS: None. COMPLICATIONS: None. INDICATIONS AND FINDINGS: A 61-year-old female admitted through the emergency room complaining of flank and right upper quadrant pain. Ultrasound revealed gallstones, as well as a CT scan of the abdomen. There was no evidence of hydronephrosis or ureteral stone by CT. There were 2 small 3 mm renal stones. The urinalysis showed no evidence of infection or hematuria. The patient's liver chemistries were normal. The patient had a distended gallbladder filled with yellow bile. There was no ductal dilatation. The cystic artery appeared to be stuck to the cystic duct. DESCRIPTION OF PROCEDURE: With the patient lying on the operating table in the supine position and after administration of general anesthesia, she was prepped and draped for laparoscopic cholecystectomy. The procedure was begun by establishing a pneumoperitoneum in the right upper quadrant midclavicular line because of previous hysterectomy. The pneumoperitoneum was insufflated to 15 mm of pressure. Then a 5-mm trocar placed in the right midclavicular line. Examination of the pelvis revealed no adhesions. The umbilical site was seen free of any adhesions 360 degrees circumferentially. At that point, the 10/11 trocar placed in the umbilical site. The patient was then rotated to the left and with the head up. We placed a 10 mm subxiphoid port and a right anterior axillary line 5-mm trocar. The left lobe of the liver was redundant. Because of that, we had to place a 5th trocar in the left upper quadrant to expose the hepatoduodenal ligament. After we did that, we began the procedure by retracting the gallbladder cephalad and the neck of the gallbladder laterally and inferiorly. Then we began the dissection high on the neck until we identified the cystic. The cystic artery appeared to be also stuck to the cystic duct. We identified the junction with the common bile duct. At that point, we clipped the cystic duct 4 times and then continued the dissection along the gallbladder bed fossa. Did not find a posterior branch. There was an area that could have contained a small branch and that was clipped twice. Then we removed the gallbladder from the liver bed using electrocautery dissection and removed it through the umbilical port. After we did that, we inspected the operative field. There was no bile leak. No bleeding. No injury. Then we released the pneumoperitoneum. As we were doing so with the camera, we saw that there was some bleeding coming from the 10 mm subxiphoid port. Then we re-insufflated the pneumoperitoneum, and then cauterized the bleeder with [place] dissector through the right anterior axillary trocar. We irrigated the area and removed all the blood. Waited several minutes and then we found that hemostasis was absolute. At that point, we released the pneumoperitoneum under direct vision with the camera also. There was no bleeding coming from within or from the outside of the 10 mm subxiphoid port. At this point, we then closed the wounds using 0 Vicryl for the umbilical fascia, 3-0 Vicryl for the subcutaneous tissue in that location, as well as the subxiphoid port. The skin of all the ports was closed using alfredo. Then 0.25% Marcaine with epinephrine was given as a local block. The patient tolerated the procedure well, and taken to the recovery room in stable condition. Job#: [id number] DOREEN
[2017-06-09] MEDS: PANTOPRAZOLE 40 MG 10ML VIAL IV SCH (12:27)
[2017-06-09] MEDS: MORPHINE SULFATE 2 MG/ML SYR IV PRN ×2 (12:35→17:11)
[2017-06-09] MEDS: INSULIN LISPRO 100 UNIT/1 ML 3ML VIAL SQ SCH (16:30)
[2017-06-09] MEDS ORDERED: PROPOFOL IV EMULSION 10 MG/ML 20 ML VIAL ONE (18:06)
[2017-06-09] MEDS ORDERED: NEOSTIGMINE 5 MG/5ML SYR ONE (18:06)
[2017-06-09] MEDS ORDERED: ROCURONIUM BROMIDE 10 MG/ML 5ML VIAL ONE (18:06)
[2017-06-09] MEDS ORDERED: GLYCOPYRROLATE INJ 1MG/ 5 ML SYR ONE (18:06)
[2017-06-09] MEDS ORDERED: DEXAMETHASONE SOD PHOS INJ 4 MG/ML VIAL ONE (18:06)
[2017-06-09] MEDS ORDERED: LIDOCAINE HCL 2% LOCAL INJ 5 ML SDV VIAL INJ ONE (18:06)
[2017-06-09] MEDS ORDERED: DESFLURANE 240 ML BTL INH ONE (18:06)
[2017-06-09] MEDS ORDERED: FENTANYL CITRATE/PF 100MCG/2 ML INJ ONE (18:48)
[2017-06-09] MEDS ORDERED: MIDAZOLAM HCL 2 MG/2 ML VIAL ONE (18:48)
[2017-06-10] VITALS: BP 112/66
[2017-06-10 01:19] VITALS: BP 112/66
[2017-06-10 04:00] VITALS: BP 133/62
[2017-06-10 06:11] LABS: BASOPHILS % 0.3 % (0.0-1.0); EOSINOPHILS # (AUTO) 0.1 (0.0-0.4); EOSINOPHILS % 0.9 % (0.0-6.0); HEMATOCRIT 34.2 % (34.2-44.1); HEMOGLOBIN 10.9 g/dL (12.0-16.0); LYMPHOCYTES % 17.2 % (18.0-39.1); MEAN CORPUSCULAR HEMOGLOBIN 28.7 pg (28-32); MEAN CORPUSCULAR HGB CONC 31.9 g/dL (31-35); MONOCYTES # (AUTO) 0.9 (0.2-0.8); MONOCYTES % 7.6 % (4.4-11.3); NEUTROPHILS # (AUTO) 8.4 (2.1-6.9); NEUTROPHILS % 73.8 % (38.7-80.0); PLATELET COUNT 311 x10e3/uL (140-360); RED CELL DISTRIBUTION WIDTH 14.3 % (11.7-14.4)
[2017-06-10] MEDS: PIPER-TAZ 3.375 GM 50 ML IV SCH (06:25)
[2017-06-10 06:31] LABS: ALANINE AMINOTRANSFERASE 26 IU/L (0-55); ALBUMIN 3.3 g/dL (3.5-5.0); ALKALINE PHOSPHATASE 68 IU/L (40-150); ANION GAP 11.1 mmol/L (8-16); BLOOD UREA NITROGEN 5 mg/dL (7-26); BUN/CREATININE RATIO 7 (6-25); CALCIUM 8.6 mg/dL (8.4-10.2); CARBON DIOXIDE 24 mmol/L (22-29); CHLORIDE 108 mmol/L (98-107); CREATININE, SERUM 0.69 mg/dL (0.57-1.11); EST GLOMERULAR FILTRATION RATE > 60 ML/MIN (60-); GLUCOSE 261 mg/dL (74-118); POTASSIUM 4.1 mmol/L (3.5-5.1); SODIUM 139 mmol/L (136-145)
[2017-06-10 07:00] VITALS: BP 136/65
[2017-06-10 07:57] VITALS: BP 136/65
[2017-06-10] MEDS: INSULIN LISPRO 100 UNIT/1 ML 3ML VIAL SQ SCH ×2 (08:31→12:04)
[2017-06-10] MEDS: INSULIN REGULAR, HUMAN 100 UNIT/1 ML 3ML VIAL SQ SCH ×2 (08:32→12:05)
[2017-06-10] MEDS ORDERED: [UNRECOGNIZED DRUG - OTHER] PO SCH (09:00)
[2017-06-10] MEDS ORDERED: INSULIN DETEMIR 100 UNIT/ML PEN SQ SCH (09:00)
[2017-06-10] MEDS ORDERED: HYDROCHLOROTHIAZIDE PO SCH (09:00)
[2017-06-10] MEDS ORDERED: VALSARTAN PO SCH (09:00)
[2017-06-10] MEDS ORDERED: VALSARTAN 160 MG TAB PO SCH (09:00)
[2017-06-10] MEDS ORDERED: HYDROCHLOROTHIAZIDE 25 MG TAB PO SCH (09:00)
[2017-06-10] MEDS ORDERED: CIPROFLOXACIN500 MG PO (11:03)
[2017-06-10] MEDS: PANTOPRAZOLE 40 MG 10ML VIAL IV SCH (11:31)
[2017-06-10 11:36] VITALS: BP 135/73
--- NOTE | 2017-06-10 14:39 | Discharge Summary ---
DISCHARGE DIAGNOSES 1. Status post laparoscopic cholecystectomy. 2. Urinary tract infection. 3. Type 2 diabetes mellitus, controlled. HISTORY AND HOSPITAL COURSE: Ms. Woody is a pleasant 61-year-old lady, a patient of my office, who has past medical history significant for diabetes, hypothyroidism, rheumatoid arthritis, and morbid obesity. She presented after the sudden onset of what was initially right flank pain and later on moving to the right upper quadrant with radiation to the back. The pain was severe at 10/10 and she tried to drink some fluid thinking that it was a kidney stone which she has had in the past, but she started having nausea and vomiting. For this reason, she presented to the emergency room. She was evaluated with a CT scan of the abdomen and pelvis, which was significant for nonobstructive stones in both kidneys and ultrasound was significant for cholelithiasis, but there was no significant evidence of cholecystitis. She was admitted to the hospital. A consultation was requested with Dr. Winston, surgery and a decision was reached to proceed with laparoscopic cholecystectomy. She underwent the procedure yesterday, tolerated it well. This morning, she is having a soft GI diet. She has had no significant nausea and vomiting and her pain is under control. Urinalysis taken at the time of admission was positive for urinary tract infection. Culture is showing E. coli, which is sensitive to most oral antibiotics. She is being discharged home in stable condition. She is given a prescription for ciprofloxacin and she is to resume her home medications. She is to follow up with Dr. Winston. DAVID CADE MD Job#: [id number] VAS
== END 2017-06-10 13:51 | disposition home or self-care (01) | DRG 418 ==
LOC: ER 11:33 → ERHOLD 20:16 → IMCU 06-09 02:34 → OBSVTOIN 06-09 19:15
PROVIDERS: ADMIT Internal Medicine; ATTEND Internal Medicine
PROC: 0FT44ZZ Resection of Gallbladder, Percutaneous Endoscopic Approach (ICD-10-PCS; principal; 2017-06-09 09:02)
DX: K80.10 Calculus of gallbladder with chronic cholecystitis without obstruction (principal); N39.0 Urinary tract infection, site not specified; I10 Essential (primary) hypertension; E66.01 Morbid (severe) obesity due to excess calories; B96.20 Unspecified Escherichia coli [E. coli] as the cause of diseases classified elsewhere; E11.9 Type 2 diabetes mellitus without complications; N20.0 Calculus of kidney; E03.9 Hypothyroidism, unspecified; M06.9 Rheumatoid arthritis, unspecified; Z68.32 Body mass index [BMI] 32.0-32.9, adult; Z79.4 Long term (current) use of insulin
CPT/HCPCS: 36415; 74176; 76705; 80053; 81001; 82150; 82948; 83690; 85025; 87086; 87186; 88304; 93005; 96360; 96374; 96376; 99284; C1766; G0378; J1100; J2001; J2250; J2270; J2405; J2543; J7030